=== PATIENT | male | born 1960 | race Hispanic/Latino ===

== ENCOUNTER 2018-12-24 09:31 | Day surgery (SDC) | payer BC ==
[2018-12-23 12:53] VITALS: BP 135/79
[2018-12-23 13:17] LABS: BILIRUBIN,URINE Negative (NEGATIVE); COLOR,URINE Yellow (YELLOW); GLUCOSE, URINE (UA) Negative (NEGATIVE); KETONES,URINE Negative (NEGATIVE); LEUKOCYTE ESTERASE ,URINE Negative (NEGATIVE); NITRATE,URINE Negative (NEGATIVE); OCCULT BLOOD,URINE Negative (NEGATIVE); PH,URINE 5.5 (5.0-8.0); PROTEIN,URINE Negative (NEGATIVE)
[2018-12-23 13:19] LABS: BASOPHILS % (AUTO) 0.6 % (0.0-5.0); EOSINOPHILS % (AUTO) 1.4 % (0.0-8.0); LYMPHOCYTES % (AUTO) 22.6 % (21.0-51.0); MEAN CORPUSCULAR HEMOGLOBIN 31.2 pg (27.0-33.0); MEAN CORPUSCULAR HGB CONC 34.8 g/dL (32.0-36.0); MEAN CORPUSCULAR VOLUME 89.7 fL (79-99); NEUTROPHILS % (AUTO) 67.4 % (40.0-77.0); PLATELET COUNT (AUTO) 313 K/uL (130-400); RED BLOOD CELL COUNT(AUTO) 4.79 MIL/uL (4.50-6.20); RED CELL DISTRIBUTION WIDTH 14.4 % (11.0-15.5); WHITE BLOOD COUNT (AUTO) 8.2 K/uL (4.8-10.8)
[2018-12-23 13:31] LABS: APPEARANCE,URINE CLEAR (CLEAR)
[~2018-12-24] VITALS: Ht 167.6 cm; Wt 75.7 kg
[2018-12-24] VITALS (15 sets, daily range): BP systolic 114–139; BP diastolic 64–89
[2018-12-24] MEDS ORDERED: LACTATED RINGERS 1000ML 1,000 ML IV ONE (10:33)
[2018-12-24] MEDS ORDERED: BUPIVACAINE/PF 0.25% 30ML VIAL IJ ONE (10:48)
[2018-12-24] MEDS ORDERED: MEPERIDINE-PF 50 MG/ML SYG ONE (11:07)
[2018-12-24] MEDS ORDERED: LIDOCAINE PF 2% 5ML ABBOJECT ONE ×2 (11:12→11:13)
[2018-12-24] MEDS ORDERED: ONDANSETRON HCL 4 MG/2 ML VIAL ONE (11:12)
[2018-12-24] MEDS ORDERED: FENTANYL CITRATE PF 50 MCG/1 ML 2ML VIAL ONE ×2 (11:12→11:30)
[2018-12-24] MEDS ORDERED: MIDAZOLAM HCL 1 MG/ML 2ML VIAL ONE (11:12)
[2018-12-24] MEDS ORDERED: DEXAMETHASONE SOD PHOSPHATE 10MG/ML 1ML VIAL ONE (11:12)
[2018-12-24] MEDS ORDERED: ROCURONIUM 10MG/1ML SYR 10 MG/ML ML ONE (11:12)
[2018-12-24] MEDS ORDERED: GLYCOPYRROLATE 1 MG/5 ML SYRINGE ONE (11:12)
[2018-12-24] MEDS ORDERED: NEOSTIGMINE 5MG/5ML SYR IV ONE (11:12)
[2018-12-24] MEDS ORDERED: PROPOFOL 10 MG/ML 20ML VIAL IV ONE (11:12)
--- NOTE | 2018-12-24 13:30 | NUR ---
NEW PT received new pt from [facility], s/p left inguinal hernia repair, dressing to site dry and intact, vs stable on arrival. pt awake and alert , denies any pain or discomorts.family at bedside Addendum: 12/24/18 at 1423 by CHERYL NOLAN RN 1330 dressing to left lower abdomen area dry and intact
--- NOTE | 2018-12-24 14:15 | NUR ---
dc dc instructions given to pt/ pts cousin with rx, instructed on new med regimen and possible side effect of new med, to f/u with Dr. Joseph tomorrow. piv removed, site asymtomatic, pt getting dress with family assitance will be dc once ready. left lower abdomen dressing dry and intact,
--- NOTE | 2018-12-24 14:20 | NUR ---
dc pt dc home via w/c ,no distress noted. accompanied by family , denies any pain or discomforts.
== END 2018-12-24 14:20 | disposition home or self-care (01) ==
LOC: DAH 09:31
PROVIDERS: ATTEND Surgery
DX: K40.30 Unilateral inguinal hernia, with obstruction, without gangrene, not specified as recurrent (principal)
CPT/HCPCS: 36415; 49507; 81003; 85025; 88302; A4450; A4452; A4930 ×2; C1729; C1781; J1100; J2001 ×2; J2175; J2250; J2405; J2704; J2710; J3010 ×2; J3490 ×2; J7120